=== PATIENT | female | born 1975 | race Caucasian/White ===

== ENCOUNTER 2023-04-27 17:34 | Inpatient (IN) | payer MEDICAID ==
[~2023-04-27] VITALS: Ht 157.5 cm; Wt 62.6 kg
[~2023-04-27 17:34] MED LIST: DOCU-385 PO; FERR324T4 PO
[2023-04-27 18:14] LABS: BASOPHILS % (AUTO) 0.3 % (0.0-2.0); EOSINOPHILS % (AUTO) 0.8 % (1.0-6.0); HEMATOCRIT 21.1 % (36-46); LYMPHOCYTES # (AUTO) 0.8 K/uL (1.0-4.8); LYMPHOCYTES % (AUTO) 10.9 % (22.0-44.0); MEAN CORPUSCULAR HEMOGLOBIN 22.4 pg (26.0-34.0); MEAN CORPUSCULAR HGB CONC 31.5 G/dL (31.0-37.0); MEAN CORPUSCULAR VOLUME 71 fL (80-100); MONOCYTES # (AUTO) 0.6 K/uL (0.1-1.0); MONOCYTES % (AUTO) 7.5 % (2.0-9.0); NEUTROPHILS # (AUTO) 6.2 K/uL (1.8-7.7); NEUTROPHILS % (AUTO) 80.5 % (40.0-70.0); PLATELET COUNT (AUTO) 299 K/uL (150-450); RED BLOOD CELL COUNT(AUTO) 2.96 MIL/uL (4.00-5.20); RED CELL DISTRIBUTION WIDTH 19.3 % (11.5-14.5); WHITE BLOOD COUNT (AUTO) 7.7 K/uL (4.5-11.0)
[2023-04-27 18:26] LABS: HEMOGLOBIN 6.6 g/dL (12.0-16.0)
[2023-04-27 18:48] LABS: RBC MORPHOLOGY COMMENT ABNORMAL RBC MORPH
[2023-04-27 20:16] LABS: % IRON SATURATION 4.3 % (22-44); IRON, SERUM 14 mcg/dL (50-175); TOTAL IRON BINDING CAPACITY 325 mcg/dL (250-450)
[2023-04-27 20:34] LABS: ANION GAP 14 mmol/L (8-16); CALCIUM, TOTAL 9.1 mg/dL (8.8-10.5); CARBON DIOXIDE 22 mmol/L (22-29); CHLORIDE 105 mmol/L (98-107); CREATININE 0.68 mg/dL (0.60-1.30); GLOMERULAR FILTR. RATE CALC > 60 mL/min (>60); GLUCOSE,RANDOM 127 mg/dL (70-110); POTASSIUM 4.3 mmol/L (3.5-5.1); SODIUM SERUM 141 mmol/L (136-145); UREA NITROGEN, BLOOD 16 mg/dL (7-18)
[2023-04-27 20:40] LABS: ALANINE AMINOTRANSFERASE 398 U/L (12-78); ALBUMIN 3.5 g/dL (3.4-5.0); ALKALINE PHOSPHATASE 63 U/L (46-116); ASPARTATE AMINOTRANSFERASE 257 U/L (15-37); BILIRUBIN,TOTAL 0.2 mg/dL (0.1-1.0); TOTAL PROTEIN, SERUM 7.2 g/dL (6.4-8.2)
[2023-04-27 21:42] LABS: COVID AG,FIA SOURCE NASAL SWAB
[2023-04-27 22:04] LABS: SARS-COV2 (COVID) ANTIGEN,FIA Negative (Negative)
[2023-04-27] MEDS ORDERED: ACETAMINOPHEN 500 MG TABLET PO ONE (22:45)
[2023-04-27] MEDS ORDERED: IOHEXOL 9 MG/ML 500 ML BOTTLE PO ONE (22:45)
[2023-04-27] MEDS ORDERED: DiphenhydrAMINE HCL 25 MG CAPSULE PO ONE (22:45)
[2023-04-27] MEDS ORDERED: SODIUM CHLORIDE 0.9% 100 ML ONE (23:01)
[2023-04-27] MEDS ORDERED: IOHEXOL 350 MG/ML 100 ML VIAL ONE (23:01)
[2023-04-27 23:10] VITALS: BP 134/75; PULSE 95; RESP 20; TEMP 98.6
[2023-04-27 23:25] VITALS: BP 128/78; PULSE 93; RESP 18; TEMP 98.9
[2023-04-27 23:40] VITALS: BP 135/63; PULSE 91; RESP 18; TEMP 98.9
[2023-04-27 23:55] VITALS: BP 132/82; PULSE 92; RESP 18; TEMP 98.8
[2023-04-28 00:25] VITALS: BP 122/79; PULSE 88; RESP 18; TEMP 98.5
[2023-04-28 00:55] VITALS: BP 122/81; PULSE 88; RESP 18; TEMP 98.3
[2023-04-28 01:43] VITALS: BP 113/77; PULSE 83; RESP 19; TEMP 98.5
[2023-04-28] MEDS ORDERED: 0.9% SODIUM CHLORIDE 10 ML SYRINGE IVP PRN (02:45)
[2023-04-28 04:01] VITALS: BP 108/61; PULSE 83; RESP 18; TEMP 98.4
[2023-04-28 07:01] LABS: CHOL/HDL RATIO 3.9 (3.9-5.7)
[2023-04-28 07:11] LABS: HEMOGLOBIN A1C 5.2 % (3.8-5.6)
[2023-04-28 07:41] LABS: APPEARANCE,URINE CLEAR (CLEAR); BILIRUBIN,URINE NEGATIVE (NEGATIVE); COLOR,URINE COLORLESS (YELLOW); GLUCOSE, URINE (UA) NEGATIVE (NEGATIVE); KETONES,URINE NEGATIVE (NEGATIVE); LEUKOCYTE ESTERASE ,URINE NEGATIVE (NEGATIVE); NITRATE,URINE NEGATIVE (NEGATIVE); OCCULT BLOOD,URINE MODERATE (NEGATIVE); PROTEIN,URINE NEGATIVE (NEGATIVE); SPECIFIC GRAVITIY, URINE 1.034 (1.003-1.030); UROBILINOGEN,URINE <=1.0 mg/dL (<=1.0)
[2023-04-28 07:59] LABS: BACTERIA,URINE None Seen /HPF (None Seen); RBC,URINE 0-2 /HPF (0-2); SQUAMOUS EPITHELIAL CELL,UR Few /LPF (None Seen); WBC,URINE 0-2 /HPF (0-5)
[2023-04-28] MEDS: PANTOPRAZOLE SODIUM 40 MG/VIAL IVP SCH (08:37)
[2023-04-28] MEDS: DOCUSATE SODIUM 100 MG CAPSULE PO SCH ×2 (08:37→20:35)
[2023-04-28 08:58] VITALS: BP 128/72; PULSE 97; RESP 18; TEMP 98.2
[2023-04-28 08:58] LABS: HEMATOCRIT 21.4 % (36-46); HEMOGLOBIN 7.3 g/dL (12.0-16.0)
[2023-04-28] MEDS ORDERED: MORPHINE SULFATE 2 MG/ML SYRINGE IVP PRN (10:15)
[2023-04-28] MEDS ORDERED: SODIUM CHLORIDE 0.9% 500 ML IV ONE (15:15)
[2023-04-28] MEDS: OxyCODONE HCL 5 MG IR TABLET PO PRN (15:44)
[2023-04-28] MEDS: ONDANSETRON HCL 4 MG/2 ML VIAL IVP PRN (18:19)
[2023-04-28 19:25] VITALS: BP_SYST 124; BP_SYST 136; BP_DIAS 74; BP_DIAS 85; PULSE 71; PULSE 89; RESP 18; TEMP 97.7
[2023-04-29 03:07] LABS: HEPATITIS A ANTIBODY IGM Negative (Negative); HEPATITIS B CORE IGM Negative (Negative); HEPATITIS C AB (EIA) Non Reactive (Non Reactive)
[2023-04-29 04:14] VITALS: BP 138/82; PULSE 92; RESP 19; TEMP 98.8
[2023-04-29] MEDS: OxyCODONE HCL 5 MG IR TABLET PO PRN (06:59)
[2023-04-29 07:08] LABS: BASOPHILS % (AUTO) 0.3 % (0.0-2.0); EOSINOPHILS % (AUTO) 0.8 % (1.0-6.0); HEMOGLOBIN 7.9 g/dL (12.0-16.0); LYMPHOCYTES # (AUTO) 1.2 K/uL (1.0-4.8); LYMPHOCYTES % (AUTO) 10.5 % (22.0-44.0); MEAN CORPUSCULAR HEMOGLOBIN 23.7 pg (26.0-34.0); MEAN CORPUSCULAR HGB CONC 32.9 G/dL (31.0-37.0); MEAN CORPUSCULAR VOLUME 72 fL (80-100); MONOCYTES % (AUTO) 8.4 % (2.0-9.0); NEUTROPHILS # (AUTO) 9.3 K/uL (1.8-7.7); PLATELET COUNT (AUTO) 342 K/uL (150-450); RED BLOOD CELL COUNT(AUTO) 3.33 MIL/uL (4.00-5.20); RED CELL DISTRIBUTION WIDTH 20.3 % (11.5-14.5); WHITE BLOOD COUNT (AUTO) 11.6 K/uL (4.5-11.0)
[2023-04-29 07:14] LABS: ANION GAP 11 mmol/L (8-16); CALCIUM, TOTAL 9.2 mg/dL (8.8-10.5); CARBON DIOXIDE 25 mmol/L (22-29); CHLORIDE 103 mmol/L (98-107); CREATININE 0.79 mg/dL (0.60-1.30); GLOMERULAR FILTR. RATE CALC > 60 mL/min (>60); GLUCOSE,RANDOM 99 mg/dL (70-110); POTASSIUM 4.8 mmol/L (3.5-5.1); SODIUM SERUM 139 mmol/L (136-145); UREA NITROGEN, BLOOD 10 mg/dL (7-18)
[2023-04-29 07:34] LABS: RBC MORPHOLOGY COMMENT ABNORMAL RBC MORPH
[2023-04-29] MEDS: PANTOPRAZOLE SODIUM 40 MG/VIAL IVP SCH (08:07)
[2023-04-29] MEDS: DOCUSATE SODIUM 100 MG CAPSULE PO SCH (08:08)
[2023-04-29 08:14] VITALS: BP 118/67; PULSE 91; RESP 18; TEMP 98.1
[2023-04-29] MEDS: ONDANSETRON HCL 4 MG/2 ML VIAL IVP PRN (08:22)
[2023-04-29] MEDS ORDERED: FERR-82 PO (13:24)
== END 2023-04-29 14:34 | disposition home or self-care (01) | DRG 663 ==
LOC: EMS 17:38 → 6N 22:36
PROVIDERS: ADMIT Internal Medicine; ATTEND Internal Medicine
PROC: 30233N1 Transfusion of Nonautologous Red Blood Cells into Peripheral Vein, Percutaneous Approach (ICD-10-PCS; principal; 2023-04-27)
DX: D64.9 Anemia, unspecified (principal); D25.9 Leiomyoma of uterus, unspecified; N93.8 Other specified abnormal uterine and vaginal bleeding; R73.9 Hyperglycemia, unspecified; Z20.822 Contact with and (suspected) exposure to COVID-19; R74.8 Abnormal levels of other serum enzymes; Z90.49 Acquired absence of other specified parts of digestive tract
CPT/HCPCS: 74177; 80048; 80053; 80061; 80074; 81001; 83036; 83540; 83550; 84702; 85014; 85018; 85025; 86850; 86900; 86901; 86923; 99285; C9113; J2270; J2405; J7040; J7050; P9016; Q9967